=== PATIENT | female | born 1990 | race Caucasian/White ===

== ENCOUNTER 2016-12-25 18:31 | Emergency (ER) | payer BC ==
[~2016-12-25] VITALS: Ht 160 cm; Wt 87.5 kg
[~2016-12-25 18:31] MED LIST: ACET1TAB40 PO; BENZ100C70 PO; ERYTOPOI RIGHT EYE; LEVA15HF6 INH; PANT40TA3 PO; VIGA RIGHT EYE
[2016-12-25 18:32] VITALS: Ht 160 cm; Wt 87.5 kg
[2016-12-25] MEDS ORDERED: IBUP-1542 PO (18:42)
[2016-12-25] MEDS ORDERED: AMO500 PO (18:42)
--- NOTE | 2016-12-25 18:47 | ERD ---
ER Documentation Chief Complaint Date/Time DATE: 12/25/16 TIME: 18:45 Chief Complaint sore throat x 2 days HPI 26-year-old female presents to emergency department for complaints of sore throat for 2 days. Patient described the pain as sharp pain, 6/10 scale, is worse upon swallowing. Patient denies any sick contacts. Patient denies any fever or chills. Patient denies any stridor. ROS All systems reviewed and are negative except as per history of present illness. Medications Home Meds Active Scripts Ibuprofen* (Motrin*) 600 Mg Tab, 600 MG PO Q6H Y for PAIN AND OR ELEVATED TEMP, #30 TAB Prov:MAURY MONTEIRO [employer] 12/25/16 Amoxicillin* (Amoxicillin*) 500 Mg Cap, 500 MG PO TID for 10 Days, CAP Prov:MAURY MONTEIRO [employer] 12/25/16 Acetaminophen with Codeine (Acetaminophen-Cod #3 Tablet) 1 Each Tablet, 1 TAB PO Q6H Y for PAIN, #14 TAB Prov:BREANA ACOSTA MD 04/22/16 Pantoprazole* (Protonix*) 40 Mg Tablet.dr, 40 MG PO DAILY, #30 TAB Prov:BREANA ACOSTA MD 04/22/16 Erythromycin* (Erythromycin* Ophthalmic) 1 Applic Oint, 1 APPLIC RIGHT EYE QID, #1 TUB Prov:GRACY,[facility] 01/28/16 Moxifloxacin Hcl* (Vigamox*) 0.5% - 3 Ml Opht, 1 DROP RIGHT EYE TID for 7 Days, EA Prov[facility] 01/28/16 Benzonatate* (Tessalon Perle*) 100 Mg Capsule, 100 MG PO Q8H Y for COUGH, #20 CAP Prov:KATHRYN SPRING-C 09/14/15 Levalbuterol* (Xopenex* HFA) 15 Gm Inha, 1-2 PUFF INH Q4 Y for SHORTNESS OF BREATH, #1 EA Prov:KATHRYN SPRING-C 09/14/15 Allergies Allergies: Coded Allergies: No Known Allergies (Verified Allergy, Unknown, 01/06/14) PMhx/Soc Immunizations: Up to date Medical and Surgical Hx: pt denies Medical Hx, pt denies Surgical Hx History of Surgery: No Anesthesia Reaction: No Hx Neurological Disorder: No Hx Respiratory Disorders: No Hx Cardiac Disorders: No Hx Psychiatric Problems: No Hx Miscellaneous Medical Probl: No Hx Alcohol Use: No Hx Substance Use: No Hx Tobacco Use: No FmHx Family History: No coronary disease, No diabetes, No other Physical Exam Vitals Vital Signs Date Time Temp Pulse Resp B/P Pulse Ox O2 Delivery O2 Flow Rate FiO2 12/25/16 18:32 98.3 82 20 106/80 100 Physical Exam GENERAL: The patient is well developed and appropriate for usual state of health, in no apparent distress. HEENT: Atraumatic. Ears: Normal tympanic membrane, no erythema or bulging. No ear canal swelling. No ear discharge. Nose: normal nasal turbinates, no erythema or swelling. Normal nasal discharge. Throat: oropharynx erythematous with left tonsillar swelling and exudate noted. No lymphadenopathy. CHEST: Clear to auscultation bilaterally. There are no rales, wheezes or rhonchi. HEART: Regular rate and rhythm. No murmurs, clicks, rubs or gallops. No S3 or S4. ABDOMEN: Soft, nontender and nondistended. Good bowel sounds. No rebound or guarding. No gross peritonitis. No gross organomegaly or masses. No Piña sign or McBurney point tenderness. BACK: No midline or flank tenderness. EXTREMITIES: Equal pulses bilaterally. There is no peripheral clubbing, cyanosis or edema. No focal swelling or erythema. Full range of motion. Grossly neurovascularly intact. NEURO: Alert and oriented. Cranial nerves 2-12 intact. Motor strength in all 4 extremities with 5/5 strength. Sensation grossly intact. Normal speech and gait. SKIN: There is no apparent rash or petechia. The skin is warm and dry. HEMATOLOGIC AND LYMPHATIC: There is no evidence of excessive bruising or lymphedema. No gross cervical, axillary, or inguinal lymphadenopathy. Procedures/MDM Medical decision making: Patient symptoms is likely consistent with acute bacterial pharyngitis, most likely strep throat. Low suspicion for peritonsillar abscess, mononucleosis, no symptoms of epiglottitis, laryngitis. No oral airway obstruction noted. No symptoms of sepsis at this time. Patient appears well and is hemodynamically stable. Patient was given for amoxicillin, ibuprofen, is advised to follow-up with primary care doctor in 2-3 days for reevaluation of symptoms. Patient is advised to do salt water gargles. Patient is advised to return to emergency department for worsening symptoms. Disposition: Home. Stable. Departure Diagnosis: Primary Impression: Acute bacterial pharyngitis Condition: Stable Patient Instructions: Pharyngitis, Strep (Presumed) MAURY MONTEIRO NP December 25, 2016 18:47
== END 2016-12-25 18:47 | disposition home or self-care (01) ==
LOC: E/R 18:31
DX: J02.9 Acute pharyngitis, unspecified (principal)
CPT/HCPCS: 99283

== ENCOUNTER 2018-08-18 22:12 | Emergency (ER) | payer BC ==
[~2018-08-18] VITALS: Ht 152.4 cm; Wt 88.6 kg
[~2018-08-18 22:12] MED LIST changes: +AMOX500C2 PO; +BENZ-6 PO; -BENZ100C70 PO; +IBUP-1542 PO
[2018-08-18 22:14] VITALS: Ht 152.4 cm; Wt 88.6 kg
[2018-08-19] MEDS ORDERED: KETOROLAC 30 MG INJ IM STA (00:57)
[2018-08-19] MEDS ORDERED: METHOCARBAMOL 750 MG TAB PO ONE (01:00)
[2018-08-19] MEDS ORDERED: IBUP-1542 PO (02:03)
[2018-08-19] MEDS ORDERED: METH750T93 PO (02:03)
[2018-08-19 02:29] VITALS: BP 105/67; PULSE 80; RESP 18
--- NOTE | 2018-08-19 07:07 | ERD ---
ER Documentation Chief Complaint Chief Complaint NECKMPAIN RADIATES UP HEAD; ON/PFF X2WKS; NO KNOWN INJ HPI 28-year-old female presents for neck pain and headache times 2 weeks. Patient states that the neck pain is over on the left side. The headache is noted to be a throbbing type of headache, rated 6 out of 10. Patient has had prior headaches in the past. Patient took Tylenol at home without relief. Denies any vision changes, no nausea or vomiting noted, no other complaints. ROS All systems reviewed and are negative except as per history of present illness. Medications Home Meds Active Scripts Methocarbamol* (Robaxin*) 750 Mg Tablet, 750 MG PO TID PRN for MUSCLE SPASMS, #30 TAB Prov:FERNANDO GILBERT DO 08/19/18 Ibuprofen* (Motrin*) 600 Mg Tab, 600 MG PO Q6H PRN for PAIN AND OR ELEVATED TEMP, #30 TAB Prov:FERNANDO GILBERT DO 08/19/18 Ibuprofen* (Motrin*) 600 Mg Tab, 600 MG PO Q6H PRN for PAIN AND OR ELEVATED TEMP, #30 TAB Prov:MAURY MONTEIRO NP 12/25/16 Amoxicillin* (Amoxicillin*) 500 Mg Cap, 500 MG PO TID for 10 Days, CAP Prov:MAURY MONTEIRO NP 12/25/16 Acetaminophen with Codeine (Acetaminophen-Cod #3 Tablet) 1 Each Tablet, 1 TAB PO Q6H PRN for PAIN, #14 TAB Prov:BREANA ACOSTA MD 04/22/16 Pantoprazole* (Protonix*) 40 Mg Tablet.dr, 40 MG PO DAILY, #30 TAB Prov:BREANA ACOSTA MD 04/22/16 Erythromycin* (Erythromycin* Ophthalmic) 1 Applic Oint, 1 APPLIC RIGHT EYE QID, #1 TUB [facility] 01/28/16 Moxifloxacin Hcl* (Vigamox*) 0.5% - 3 Ml Opht, 1 DROP RIGHT EYE TID for 7 Days, EA Prov[facility] 01/28/16 Benzonatate* (Tessalon Perle*) 100 Mg Capsule, 100 MG PO Q8H PRN for COUGH, #20 CAP Prov:KATHRYN SPRING PA-C 09/14/15 Levalbuterol* (Xopenex* HFA) 15 Gm Inha, 1-2 PUFF INH Q4 PRN for SHORTNESS OF BREATH, #1 EA Prov:CLEMENTINEKATHRYN PA-C 09/14/15 Allergies Allergies: Coded Allergies: No Known Allergies (Verified Allergy, Unknown, 01/06/14) PMhx/Soc Medical and Surgical Hx: pt denies Surgical Hx History of Surgery: No Anesthesia Reaction: No Hx Neurological Disorder: No Hx Respiratory Disorders: No Hx Cardiac Disorders: No Hx Psychiatric Problems: No Hx Miscellaneous Medical Probl: Yes (hypothyroidism) Hx Alcohol Use: No Hx Substance Use: No Hx Tobacco Use: No Physical Exam Vitals Vital Signs Date Temp Pulse Resp B/P (MAP) Pulse Ox O2 O2 Flow FiO2 Time Delivery Rate 08/19/18 98.1 80 18 105/67 100 Room Air 02:29 (80) 08/18/18 97.6 19 19 109/63 100 22:14 (78) Physical Exam Const: No acute distress Head: Atraumatic, no temporal area tenderness to palpation Eyes: Normal Conjunctiva, pupils equal, round, reactive to light bilaterally ENT: Normal External Ears, bilateral tympanic membrane intact without erythema or bulging noted, Nose and Mouth. No tonsillar swelling or exudate noted Neck: Full range of motion. No meningismus, no bruits noted, left neck C-spine paravertebral muscle tenderness to palpation, left Resp: Clear to auscultation bilaterally Cardio: Regular rate and rhythm, no murmurs, bilateral radial and dorsalis pedis pulses intact Skin: No petechiae or rashes Ext: No cyanosis, or edema, 5 out of 5 muscular bilateral upper and lower extremities, left upper shoulder tenderness to palpation Neur: Awake and alert, bilateral upper and lower extremity sensation intact Psych: Normal Mood and Affect Results 24 hrs Laboratory Tests Test 08/19/18 01:14 POC Beta HCG, Qualitative NEGATIVE Current Medications Medications Dose Sig/Laila Start Time Status Last (Trade) Ordered Route PRN Stop Time Admin Dose Reason Admin Ketorolac 30 mg ONCE STAT 08/19/18 DC 08/19/18 Tromethamine IM 00:57 01:19 (Toradol) 08/19/18 00:58 750 mg ONCE ONCE 08/19/18 DC 08/19/18 Methocarbamol PO 01:00 01:19 (Robaxin) 08/19/18 01:01 Procedures/MDM Medical Decision Making: Differential diagnosis includes but not limited to primary headache, subarachnoid hemorrhage, meningitis, temporal arteritis, glaucoma, hypertension, cerebral ischemia, carotid or vertebral arterial dissection, brain tumor. Patient appeared well on physical examination, nontoxic appearing. No history of fever. There is low suspicion for meningitis. Given patient's age and no temporal area tenderness to palpation, low suspicion for temporal arteritis. Patient has no vision changes and pupils are reactive bilaterally, low suspicion for glaucoma. There is also no focal neurologic deficits to suggest a brain tumor. Patient has normal sensation and muscle strength, low suspicion for cerebral ischemia. Given headache is similar to prior headaches, patient possibly has a primary headache. The left shoulder tenderness palpation likely due to a muscle strain. In the ER patient given Toradol and Robaxin Symptoms improved with treatment. Patient given prescription for ibuprofen and Robaxin Patient advised to follow up with PCP in 1-2 days. Patient advised to return to ED for new or worsening symptoms. Patient stable on discharge from the ED. Disclaimer: Inadvertent spelling and grammatical errors are likely due to EHR/dictation software use and do not reflect on the overall quality of patient care. Also, please note that the electronic time recorded on this note does not necessarily reflect the actual time of the patient encounter. Departure Diagnosis: Primary Impression: Left shoulder strain Additional Impression: Headache Condition: Fair Patient Instructions: Self-Care for Headaches, Muscle Strain, Extremity Additional Instructions: Call your primary care doctor TOMORROW for an appointment during the next 1-2 days.See the doctor sooner or return here if your condition worsens before your appointment time. FERNANDO GILBERT DO Aug 19, 2018 07:07
== END 2018-08-19 02:25 | disposition home or self-care (01) ==
LOC: FTE 22:12
DX: S46.912A Strain of unspecified muscle, fascia and tendon at shoulder and upper arm level, left arm, initial encounter (principal); E03.9 Hypothyroidism, unspecified; R51 Headache; X58.XXXA Exposure to other specified factors, initial encounter; Y92.9 Unspecified place or not applicable
CPT/HCPCS: 81025; 96372; 99284; J1885; Z7610